=== PATIENT | male | born 2000 | race Hispanic/Latino ===

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

== ENCOUNTER 2019-06-22 22:53 | Emergency (ER) | payer SELFPAY ==
[2019-06-22] MEDS ORDERED: ACETAMINOPHEN EXTRA STRENGTH 500 MG TABLET ONE (23:30)
== END 2019-06-23 00:55 | disposition home or self-care (01) ==
LOC: EDH 22:53
DX: S43.402A Unspecified sprain of left shoulder joint, initial encounter (principal); W51.XXXA Accidental striking against or bumped into by another person, initial encounter; Y93.89 Activity, other specified; Y92.89 Other specified places as the place of occurrence of the external cause; Y99.8 Other external cause status
CPT/HCPCS: 73030

== ENCOUNTER 2020-09-13 21:50 | Emergency (ER) | payer OTHER ==
[~2020-09-13] VITALS: Ht 170.2 cm; Wt 99.8 kg
[2020-09-13 22:01] VITALS: BP 130/79
[2020-09-13] MEDS ORDERED: KETOROLAC 30MG VIAL (30MG/ML) IM STA (22:09)
[2020-09-13] MEDS ORDERED: KETOROLAC 30MG VIAL (30MG/ML) ONE (22:24)
[2020-09-13 22:30] VITALS: BP 126/71
[2020-09-13] MEDS ORDERED: IBUP100O27 PO (22:46)
== END 2020-09-13 23:20 | disposition home or self-care (01) ==
LOC: EDH 21:50
DX: S93.401A Sprain of unspecified ligament of right ankle, initial encounter (principal); X58.XXXA Exposure to other specified factors, initial encounter; Y93.89 Activity, other specified; Y92.89 Other specified places as the place of occurrence of the external cause; Y99.8 Other external cause status
CPT/HCPCS: 73610; 96372; 99283; J1885

== ENCOUNTER 2023-09-12 17:06 | Emergency (ER) | payer OTHER ==
[~2023-09-12] VITALS: Ht 170.2 cm; Wt 99.8 kg
[~2023-09-12 17:06] MED LIST: IBUP100O27 PO
[2023-09-12 17:48] VITALS: BP 153/90; PULSE 68; RESP 18
[2023-09-12 18:39] LABS: APPEARANCE,URINE CLEAR (CLEAR); BILIRUBIN,URINE NEGATIVE (NEGATIVE); COLOR,URINE YELLOW (YELLOW); GLUCOSE, URINE (UA) NEGATIVE (NEGATIVE); KETONES,URINE NEGATIVE (NEGATIVE); LEUKOCYTE ESTERASE ,URINE NEGATIVE Leu/uL (NEGATIVE); NITRATE,URINE NEGATIVE (NEGATIVE); OCCULT BLOOD,URINE NEGATIVE (NEGATIVE); PH,URINE 5.5 (5.0-8.0); PROTEIN,URINE 10 mg/dL (NEGATIVE); UROBILINOGEN,URINE 0.2 mg/dL (0.2-1.0)
[2023-09-12 18:44] LABS: ADD UA MICROSCOPIC YES; MUCUS,URINE RARE LPF (None Seen); RBC,URINE 0-1 /HPF (0-1); SQUAMOUS EPITHELIAL CELL,UR RARE /HPF (0-2); WBC,URINE 0-1 /HPF (0-1)
[2023-09-12] MEDS: KETOROLAC 10 MG TABLET PO SCH (19:13)
== END 2023-09-12 19:15 | disposition home or self-care (01) ==
LOC: EDH 17:06
DX: N43.3 Hydrocele, unspecified (principal); Z90.49 Acquired absence of other specified parts of digestive tract; Z98.890 Other specified postprocedural states
CPT/HCPCS: 76870; 81001

== ENCOUNTER 2023-10-06 00:07 | Emergency (ER) | payer OTHER ==
[~2023-10-06] VITALS: Ht 170.2 cm; Wt 99.8 kg
[2023-10-06 00:35] LABS: CREATININE 0.9 mg/dL (0.5-1.3); POTASSIUM 3.6 mmol/L (3.5-5.1)
[2023-10-06 00:51] LABS: BASOPHILS # (AUTO) 0.02 K/uL (0.00-0.20); BASOPHILS % (AUTO) 0.3 % (0.0-5.0); EOSINOPHILS # (AUTO) 0.01 K/uL (0.00-0.70); EOSINOPHILS % (AUTO) 0.1 % (0.0-8.0); HEMATOCRIT 44.6 % (42-54); IMMATURE GRANULOCYTE ABSOLUTE 0.04 K/uL (0-1); LYMPHOCYTES # (AUTO) 2.6 K/uL (1.0-4.8); LYMPHOCYTES % (AUTO) 32.7 % (21.0-51.0); MEAN CORPUSCULAR HEMOGLOBIN 27.8 pg (27.0-33.0); MEAN CORPUSCULAR HGB CONC 33.9 g/dL (32.0-36.0); MONOCYTES # (AUTO) 0.7 K/uL (0.1-1.0); MONOCYTES % (AUTO) 8.6 % (3.0-13.0); NEUTROPHILS # (AUTO) 4.6 K/uL (1.8-7.7); NEUTROPHILS % (AUTO) 57.8 % (40.0-77.0); PLATELET COUNT (AUTO) 226 K/uL (130-400); RED BLOOD CELL COUNT(AUTO) 5.44 MIL/uL (4.50-6.20); RED CELL DISTRIBUTION WIDTH 14.1 % (11.0-15.5); WHITE BLOOD COUNT (AUTO) 7.9 K/uL (4.8-10.8)
[2023-10-06 01:08] LABS: B-TYPE NATRIURETIC PEPTIDE < 5 pg/mL (0-100)
[2023-10-06 01:38] VITALS: BP 132/64; PULSE 92; RESP 20; O2SAT 98
== END 2023-10-06 01:56 | disposition home or self-care (01) ==
LOC: EDH 00:07
DX: F41.9 Anxiety disorder, unspecified (principal); Z79.1 Long term (current) use of non-steroidal anti-inflammatories (NSAID); Z90.49 Acquired absence of other specified parts of digestive tract
CPT/HCPCS: 36415; 71045; 80048; 82550; 83880; 84484; 85025; 93005

== ENCOUNTER 2025-03-16 22:52 | Emergency (ER) | payer SELFPAY ==
[~2025-03-16] VITALS: Ht 170.2 cm; Wt 117.5 kg
[2025-03-16 23:23] LABS: RAPID GROUP A STREP negative (NEGATIVE)
[2025-03-16 23:26] LABS: INFLUENZA TYPE B Negative For Type B (NEGATIVE)
[2025-03-16 23:34] LABS: SARS-CoV-2, RNA, NAAT NEGATIVE SARS CoV-2 (NEGATIVE)
[2025-03-17 00:01] LABS: INFLUENZA TYPE A Positive For Type A (NEGATIVE)
[2025-03-17] MEDS: 0.9%NACL 1000ML 1,000 ML IV ONE (00:17)
[2025-03-17 00:18] VITALS: TEMP 100.6
--- NOTE | 2025-03-17 00:29 | HMCIMG ---
EXAM: CR Chest, 1 View. CLINICAL HISTORY: sob COMPARISON: None provided. FINDINGS: LUNGS: The lungs show no infiltrate or other acute finding. PLEURAL SPACES: No pleural effusion or pneumothorax. MEDIASTINUM: The cardiomediastinal silhouette is within normal limits. BONES: No aggressively appearing osseous lesion was seen. IMPRESSION: No acute cardiopulmonary pathology is evident. /[place]
[2025-03-17] MEDS ORDERED: METH4TAB3 PO (00:46)
--- NOTE | 2025-03-17 00:47 | ERN ---
General Chief Complaint: Cough Stated Complaint: C/O COUGH,SORE THROAT, FEVER, SOB, DIZZINESS X 6 D Time Seen by MD: 23:02 Time Seen by Midlevel: 23:02 Source: patient History of Present Illness Initial Comments 25-year-old male presents to the ER for evaluation of flu-like symptoms that has been ongoing for one week. Symptoms consist of sore throat, fever, shortness of breath, and a cough. Allergies: Coded Allergies: No Known Allergies (Unverified Allergy, Unknown, 12/31/18) No Known Drug Allergies (Unverified Allergy, Unknown, 06/23/19) Home Meds Active Scripts Ibuprofen (Motrin/Advil 100 mg/5 ml Susp Udcup) 100 Mg/5 Ml Susp, 400 MG PO TID, #240 ML Prov:CHAPARRO [employer]ISW[employer] 09/13/20 Past Medical History Past Medical History: No Pertinent History Past Surgical History: Appendectomy Family History Family History: Negative Social History Social History: Negative, Lives with family ROS Dictation CONSTITUTIONAL: Negative except for HPI HEAD/FACE: Negative except for HPI EENT: Negative except for HPI RESPIRATORY: Negative except for HPI GASTROINTESTINAL/ABDOMINAL: Negative except for HPI GENITOURINARY: Negative except for HPI MUSCULOSKELETAL: Negative except for HPI INTEGUMENTARY: Negative except for HPI NEUROLOGICAL/PSYCH: Negative except for HPI HEMATOLOGIC/LYMPHATIC: Negative except for HPI All Systems Negative, Except as noted above. 13 point review of systems assessed and all negative except for above. Physical Exam Physical Exam Dictation Vital Signs reviewed General Appearance: Alert, oriented x 3, no acute distress, well developed, nourished. Head and Face: non-traumatic. Eyes: PERRL, pink conjunctivas, eyelid no trauma, anterior chamber with arcus senilis. Ears: Pinnas intact and no signs of trauma or erythema ear canals clear and no discharge TM no erythema Nose: No discharge, no bleeding. Oropharynx: Mouth normal, tongue pink, pharynx clear,no erythema, tonsils no exudates, no abscesses noted, mucous membrane moist Neck: Supple, non-tender, no thyromegaly, no masses, no JVD, no bruits Breast:Deferred Chest:No tenderness, no crepitus, no paradoxical movement, no retractions Lungs:Clear, well-ventilated, symmetric, no rales, no wheezing, no rhonchi, no stridor, good breath sounds bilaterally Heart: Regular rate, regular rhythm, no murmur, no gallops Vascular: no peripheral edema, Abdomen: Soft, positive bowel sounds, nondistended, no guarding, nontender, no rebound, no masses no hepatomegaly, no splenomegaly, no Garnica's sign, no hernias. Rectal: Deferred Genital: Deferred Neurological: Normal speech, motor function intact, sensory function intact Musculoskeletal: Neck nontender, full range of motion, back nontender, full range of motion, Extremities: nontender, full range of motion Skin: Color pink, dry, no turgor, no rash, no lacerations, no abrasions, no contusions. Lymphatic: Deferred Results Laboratory and Microbiology Lab and Micro Result Laboratory Tests Test 03/16/25 23:01 Influenza Type A Antigen Positive For Type A Influenza Type B Antigen Negative For Type B SARS-CoV-2, RNA, NAAT NEGATIVE SARS CoV-2 Group A Streptococcus Rapid negative (NEGATIVE) Labs Reviewed?: Yes MDM MDM: Differential diagnosis: Viral illness, upper respiratory infection, bronchitis, pneumonia There are no social concerns with this patient. Prescription drug management Prescriptions will include: Medrol pack Medical management and examination interpretation discussions were had by me with other qualified healthcare professionals as indicated for the patient's care. ED Course Orders Procedure Category Date Status Time Chest 1vw RAD 03/16/25 Resulted 23:11 Covid Rna Naat LAB 03/16/25 Complete 23:11 Influenza Type A & B, LAB 03/16/25 Complete Rapid 23:11 Rapid (Group A Strep) LAB 03/16/25 Complete 23:11 0.9%Nacl 1000ml (Ns PHA 03/16/25 Complete 1000ml) 23:30 Dexamethasone 4mg/Ml PHA 03/16/25 Complete 1ml Vial (Dexametha 23:30 Acetaminophen 500mg PHA 03/17/25 Complete Tab (Tylenol 500mg T 00:00 Ketorolac PHA 03/17/25 Complete Tromethamine 15mg/Ml 00:00 Current Medications Medications (Trade) Dose Ordered Sig/Mj Route PRN Reason Start Time Stop Time Status Last Admin Dose Admin Acetaminophen (TYLenol 500MG TAB) 1,000 mg ONCE ONCE PO 03/17/25 00:00 03/17/25 00:01 DC 03/17/25 00:18 Dexamethasone Sodium Phosphate (dexaMETHasone 4MG/ML 1ML VIAL) 4 mg ONCE ONCE IV 03/16/25 23:30 03/16/25 23:31 DC 03/17/25 00:18 Ketorolac Tromethamine (toRADol) 15 mg ONCE ONCE IV 03/17/25 00:00 03/17/25 00:01 DC 03/17/25 00:18 Sodium Chloride 1,000 ml @ 0 mls/hr ONCE ONCE IV 03/16/25 23:30 03/16/25 23:31 DC 03/17/25 00:17 Vital Signs Date Time Temp Pulse Resp B/P (MAP) Pulse Ox O2 Delivery O2 Flow Rate FiO2 03/17/25 00:39 102.9 110 18 140/84 97 Room Air* 0 21 03/17/25 00:18 100.6 03/16/25 22:56 100.6 137 20 155/91 96 Room Air DX & DISP Disposition: Discharge Departure Impression: Primary Impression: Influenza A Condition: Stable Scripts Methylprednisolone (Medrol) 4 Mg Tab.ds.pk 1 TAB PO AD for 6 Days, #21 TAB 0 Refills 6 on day 1 then reduce by one tablet daily until gone Prov: RJ SOMMER PAC 03/17/25 Additional Instructions: You have tested positive for influenza A. Continue with Tylenol and Motrin as needed for fever. Referrals: SELF,REFERRAL (PCP) Time of Disposition: 00:45 I have reviewed the case, and I agree with, Diagnosis and Plan I performed the substantive portion of the visit. I have reviewed and personally made and approve the management plan that is documented in the note by myself or the ELENA. I acknowledge for responsibility for the patient's management plan. RJ SOMMER PAC Mar 17, 2025 00:47
[2025-03-17 01:07] VITALS: BP 128/76; PULSE 108; RESP 18; TEMP 102; O2SAT 97
== END 2025-03-17 01:11 | disposition home or self-care (01) ==
LOC: EDH 22:52
DX: R05.9 Cough, unspecified (principal); J10.1 Influenza due to other identified influenza virus with other respiratory manifestations; Z79.1 Long term (current) use of non-steroidal anti-inflammatories (NSAID); Z90.49 Acquired absence of other specified parts of digestive tract; Z20.822 Contact with and (suspected) exposure to COVID-19
CPT/HCPCS: 99284; 71045; 87635; 87880; 87804 ×2; 96374; 96375; J1100; J1885; J7030